=== PATIENT | male | born 1980 | race Caucasian/White ===

== ENCOUNTER 2018-01-29 06:30 | Emergency (ER) | payer SELFPAY ==
[~2018-01-29] VITALS: Ht 175.3 cm; Wt 68.2 kg
[2018-01-29 06:34] VITALS: Ht 175.3 cm; Wt 68.2 kg
[2018-01-29 07:05] LABS: APPEARANCE CLEAR (CLEAR); BILIRUBIN NEGATIVE (NEGATIVE); COLOR YELLOW (YELLOW); GLUCOSE NEGATIVE (NEGATIVE); KETONE NEGATIVE (NEGATIVE); NITRITE NEGATIVE (NEGATIVE); PROTEIN NEGATIVE (NEGATIVE); SPECIFIC GRAVITY 1.025 (1.005-1.020); UROBILINOGEN NORMAL (NORMAL)
[2018-01-29 07:07] LABS: BACTERIA FEW /hpf (NONE SEEN); EPITHELIAL CELLS 0-5 /hpf (0-5); MUCUS >1+ /lpf (NONE SEEN); RED CELLS - URINE NONE SEEN /hpf (0-5); WHITE CELLS - URINE 0-5 /hpf (0-5)
[2018-01-29] MEDS ORDERED: NORCO 7.5/325 T1 TA1 PO (07:26)
[2018-01-29] MEDS ORDERED: CLEOCIN HCL300 MG PO (07:33)
[2018-01-29] MEDS ORDERED: VALTREX1000 MG PO (07:33)
[2018-01-29 07:44] VITALS: BP 125/80
[2018-02-03 22:06] LABS: CHLAMYDIA TRACHOMATIS, NAA Positive (Negative)
== END 2018-01-29 07:44 | disposition home or self-care (01) ==
LOC: D.ER 06:30
PROVIDERS: Family Medicine
DX: N48.22 Cellulitis of corpus cavernosum and penis (principal); F17.200 Nicotine dependence, unspecified, uncomplicated